=== PATIENT | female | born 1980 | race Caucasian/White ===

== ENCOUNTER → 2017-01-21 | Outpatient (CLI) | payer OTHER ==
--- NOTE | 2017-01-21 14:28 | RAD ---
DATE: January 21, 2017 EXAM: DIGITAL DIAGNOSTIC BILATERAL, BREAST LEFT HISTORY: Palpable abnormality in a 36-year-old noted by clinician at the 2:00 position left breast. Patient and technologist could not palpate anything at this site. COMPARISON: None, baseline. TECHNIQUE: 2D digital CC and MLO views of each breast were obtained. Implant displaced views are provided. Limited ultrasound was then performed of the upper outer left breast. This study was interpreted with the benefit of Computerized Aided Detection (CAD). FINDINGS: The breast parenchyma is heterogeneously dense, category C, which may obscure small masses. Probable intraparenchymal lymph nodes within the outer left breast on CC view has no correlate on implant displaced or MLO views. Axillary lymph nodes appear benign. Implants are noted. There is no worrisome mass or area of architectural distortion. There are no suspicious groupings of microcalcifications Ultrasound of the area of concern demonstrates no mass, cyst, or lymph node. IMPRESSION: No sonographic or mammographic evidence of mass at the area of concern. BI-RADS CATEGORY: 2 BENIGN FINDING RECOMMENDED FOLLOW-UP: CLIN FOLLOW UP IMAGING CLINICALLY INDICATED The current recommendations are for screening to begin at age 40. Absence of imaging findings should not exclude consideration of excisional biopsy of a clinically palpable lesion in the appropriate clinical setting. PQRS compliance statement: Patient information was entered into a reminder system with a target due date for the next mammogram. Mammography is a sensitive method for finding small breast cancers, but it does not detect them all and is not a substitute for careful clinical examination. A negative mammogram does not negate a clinically suspicious finding and should not result in delay in biopsying a clinically suspicious abnormality. "Our facility is accredited by the [employer] Mammography Program."
== END | disposition home or self-care (01) ==
LOC: MAMMO 12:36
PROVIDERS: ATTEND Nurse Practitioner Family
DX: R92.8 Other abnormal and inconclusive findings on diagnostic imaging of breast (principal)
CPT/HCPCS: 76641; G0204; 77066

== ENCOUNTER 2017-05-21 18:07 | Emergency (ER) | payer OTHER ==
[~2017-05-21] VITALS: Ht 162.6 cm; Wt 72.6 kg
--- NOTE | 2017-05-21 18:11 | ED.ADGEN ---
Past History Past Medical History: Migraines, Other Adult General Chief Complaint Chief Complaint " I got bad dental pain.. and it is giving me a headache..." HPI HPI Patient is a 37 year old female who presents with above hx a and complaints Lt. upper molar 1 &2 pain. To have dental work done tomorrow. Pt. denies trismus. No history immunosuppression. Normally healthy. Did have a root canal done tomorrow. Normally follows at [place]. Review of Systems Review of Systems Constitutional: Denies fever or chills [] Eyes: Denies change in visual acuity, redness, or eye pain [] HENT: Denies nasal congestion or sore throat []complaints of dental pain Respiratory: Denies cough or shortness of breath [] Cardiovascular: No additional information not addressed in HPI [] GI: Denies abdominal pain, nausea, vomiting, bloody stools or diarrhea [] : Denies dysuria or hematuria [] Musculoskeletal: Denies back pain or joint pain [] Integument: Denies rash or skin lesions [] Neurologic: Denies headache, focal weakness or sensory changes [] Endocrine: Denies polyuria or polydipsia [] All other systems were reviewed and found to be within normal limits, except as documented in this note. Family History Family History Noncontributory Current Medications Current Medications Current Medications Medications (Trade) Dose Ordered Sig/Derrek Start Time Stop Time Status Last Admin Dose Admin Ceftriaxone Sodium (Rocephin Im) 1 gm 1X ONCE 05/21/17 19:15 05/21/17 19:16 DC 05/21/17 19:06 1 GM Morphine Sulfate (Morphine 10mg Syringe) 10 mg 1X ONCE 05/21/17 19:15 05/21/17 19:16 DC 05/21/17 19:06 10 MG Allergies Allergies Allergies Coded Allergies Type Severity Reaction Last Updated Verified No Known Drug Allergies 05/21/17 No Physical Exam Physical Exam Constitutional: Well developed, well nourished, in acute distress, non-toxic appearance. [] HENT: Normocephalic, atraumatic, bilateral external ears normal, oropharynx moist, no oral exudates, nose normal. []Pain in molar area of 1 and 2. Eyes: PERRLA, EOMI, conjunctiva normal, no discharge. [] Neck: Normal range of motion, no tenderness, supple, no stridor. [] Cardiovascular:Heart rate regular rhythm, no murmur [] Lungs & Thorax: Bilateral breath sounds clear to auscultation [] Abdomen: Bowel sounds normal, soft, no tenderness, no masses, no pulsatile masses. [] Skin: Warm, dry, no erythema, no rash. [] Back: No tenderness, no CVA tenderness. [] Extremities: No tenderness, no cyanosis, no clubbing, ROM intact, no edema. [] Neurologic: Alert and oriented X 3, normal motor function, normal sensory function, no focal deficits noted. []DTRs +2 at brachial and patella. Patient ambulatory without problems. Psychologic: Affect anxious , judgement normal, mood normal. [] Current Patient Data Vital Signs Vital Signs Date Time Temp Pulse Resp B/P (MAP) Pulse Ox O2 Delivery O2 Flow Rate FiO2 05/21/17 19:20 98.7 58 18 100 05/21/17 19:06 Room Air EKG EKG [] Radiology/Procedures Radiology/Procedures [] Course & Med Decision Making Course & Med Decision Making Pertinent Labs and Imaging studies reviewed. (See chart for details). Take Keflex 500x3 times a day. Follow-up with [facility]. Vicoprofen up to 4 times a day for severe pain. Return if any concerns. [] Final Impression Final Impression 1. Dental Pain 2. Migraine[] Problems: Dragon Disclaimer Dragon Disclaimer This electronic medical record was generated, in whole or in part, using a voice recognition dictation system. FLORIAN STONE MD May 21, 2017 18:11
[2017-05-21] MEDS ORDERED: ONDA8TAB12 PO (18:56)
[2017-05-21] MEDS ORDERED: CEPH-264 PO (18:56)
[2017-05-21] MEDS ORDERED: HYDR-79 PO (18:56)
[2017-05-21] MEDS: MORPHINE SULFATE 10 MG/ML SYRINGE. SQ ONE (19:06)
[2017-05-21] MEDS: cefTRIAXone IM 1 GM VIAL IM ONE (19:06)
[2017-05-21 19:20] VITALS: BP 129/75
== END 2017-05-21 19:20 | disposition home or self-care (01) ==
LOC: ER 18:07
DX: K08.89 Other specified disorders of teeth and supporting structures (principal); G43.909 Migraine, unspecified, not intractable, without status migrainosus
CPT/HCPCS: 96372; 99284; J0696; J2270

== ENCOUNTER 2017-09-12 08:02 | Emergency (ER) | payer OTHER ==
[~2017-09-12] VITALS: Ht 162.6 cm; Wt 71.2 kg
[~2017-09-12 08:02] MED LIST: CEPH-264 PO; HYDR-79 PO; ONDA8TAB12 PO
[2017-09-12 08:16] VITALS: BP 125/66
[2017-09-12] MEDS ORDERED: BENZ100C PO (08:27)
--- NOTE | 2017-09-12 08:27 | PHYS DOC ---
Past History Past Medical History: No Pertinent History Past Surgical History: Tonsillectomy, Other Smoking: Non-smoker Alcohol Use: None Drug Use: None Adult General Chief Complaint Chief Complaint: COUGH HPI HPI Patient is a 37-year-old female who presents to the emergency department for evaluation. She states that on Saturday evening, she began experiencing nasal congestion, and has had a cough, which has been nonproductive. She reports nasal congestion and drainage. She has not had a sore throat, otalgia, headache , fever, mucus production, or shortness of breath. 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 There are no alleviating or exacerbating factors to her symptoms. Review of Systems Review of Systems Constitutional: Denies fever or chills [] Eyes: Denies change in visual acuity, redness, or eye pain [] HENT: Denies sore throat. Denies nasal congestion. Denies otalgia. [] Respiratory: Denies conductive cough or shortness of breath [] Cardiovascular:The patient denies any shortness of breath, chest pain, palpitations, or orthopnea [] GI: Denies abdominal pain, nausea, vomiting, bloody stools or diarrhea [] : Denies .[] Musculoskeletal: Denies back pain or joint pain [] Neurologic: Denies headache, focal weakness or sensory changes [] Allergies Allergies Allergies Coded Allergies Type Severity Reaction Last Updated Verified No Known Drug Allergies 05/21/17 No Physical Exam Physical Exam PHYSICAL EXAM: CONSTITUTIONAL: Well developed, well nourished HEAD: normocephalic, atraumatic EENT: PERRL, EOMI. Conjunctivae normal color, sclerae non-icteric; moist mucous membranes. Oropharynx is normal. NECK: Supple, non-tender; no meningismus. LUNGS: Lungs CTA, breathing even and unlabored. Normal air movement. HEART: Regular rate and rhythm, no murmur CHEST: No deformity; non-tender ABDOMEN: The abdomen is soft, and non-tender, no masses or bruits. EXTREM: Normal ROM; no deformity, no calf tenderness. Normal pulses palpable in all extremities. There is no pedal edema. SKIN: No rash; no diaphoresis NEURO: Alert; normal speech and cognition; CN's grossly intact; strength grossly intact without focal deficit. BACK: No CVA TTP. Current Patient Data Vital Signs Vital Signs Date Time Temp Pulse Resp B/P (MAP) Pulse Ox O2 Delivery O2 Flow Rate FiO2 09/12/17 08:16 98.5 82 18 97 Room Air EKG EKG [] Radiology/Procedures Radiology/Procedures [] Course & Med Decision Making Course & Med Decision Making I discussed the possible use of [id number] decongestants with the patient , although I cautioned her to study the list of potential prohibited substances published by her weight lifting competition. I discussed return precautions with the patient. Dragon Disclaimer Dragon Disclaimer This electronic medical record was generated, in whole or in part, using a voice recognition dictation system. Departure Departure: Impression: Primary Impression: Cough Additional Impression: Upper respiratory infection Disposition: 01 HOME, SELF-CARE Condition: STABLE Referrals: JULIETA [facility]ON[facility] (PCP) Patient Instructions: Cough, Adult, Upper Respiratory Infection, Adult Scripts Benzonatate (TESSALON PERLE) 100 Mg Capsule 2 CAP PO TID, #21 CAP Prov: MARGIE MORROW MD 09/12/17 Problem Qualifiers MARGIE MORROW MD Sep 12, 2017 08:27
== END 2017-09-12 08:28 | disposition home or self-care (01) ==
LOC: ER 08:02
DX: J06.9 Acute upper respiratory infection, unspecified (principal)
CPT/HCPCS: 99283